=== PATIENT | male | born 1930 | race Caucasian/White ===

== ENCOUNTER 2019-11-19 12:55 | Emergency (ER) | payer MEDICARE, OTHER ==
--- NOTE | 2019-11-19 13:10 | ED ---
Lower Extremity - HPI Summary HPI Summary: The patient is an 89-year-old male arriving via ambulance to [facility] emergency department with a chief complaint of a fall this morning around 10:00 with increased right hip pain upon arrival. He reports a history of frequent falls with transfer from his wheelchair. During the episode today, he fell onto buttocks, and he did not hit his head or have any loss of consciousness. The pain in the hip has resolved to the baseline pain he feels. Symptoms rated 4/10 in severity. He has not taken any medications prior to arrival for treatment. Past medical history significant for diabetes, anemia, CAD, hyperlipidemia, hypertension, pacemaker, aortic valve replacement, asbestos, arthritis, stroke following cardiac surgery, right carotid endarterectomy, arthritis, left total knee replacement. Former smoker, no alcohol use, no substance use. Medications reviewed. Allergies noted. Home Medications Medication Instructions Recorded Confirmed Type Aspirin 81 mg CHEW TAB* [Aspirin 1 tab PO DAILY 08/04/13 07/07/16 History Low Dose TAB*] Multivitamins/Minerals TAB* [Thera 1 tab PO QAM 08/04/13 07/07/16 History M Plus TAB*] Tiotropium CAPSULE (NF) [Spiriva*] 1 cap INH QAM 08/04/13 07/07/16 History metFORMIN* [Glucophage*] 1 tab PO BID 08/04/13 07/07/16 History Acetaminophen [Acetaminophen Extra 1 tab PO BID PRN 10/09/15 07/07/16 History Stren] Albuterol Sulfate [Proventil Hfa] 2 puff INH QID PRN 10/09/15 07/07/16 History Amoxicillin PO (*) [Amoxicillin 4 cap PO SEE INSTRUCTIONS PRN 10/09/15 07/07/16 History 500 MG CAP*] Artificial Tear Solution [Tears 1 erika BOTH EYES SEE INSTRUCTIONS 10/09/15 History Naturale II] Baclofen TAB* [Lioresal TAB*] 0.5 tab PO BEDTIME PRN 10/09/15 07/07/16 History Budesonide/Formote 80/4.5(NF) 2 puff INH BID 10/09/15 07/07/16 History [Symbicort 80/4.5 (NF)] Digoxin TAB* [Lanoxin TAB*] 1 tab PO QAM 10/09/15 07/07/16 History Ferrous Sulfate TAB* 1 tab PO QAM 10/09/15 07/07/16 History Finasteride TAB* [Proscar TAB*] 1 tab PO QPM 10/09/15 07/07/16 History Metoprolol Succinate XL TAB* 0.5 tab PO QPM 10/09/15 07/07/16 History [Toprol XL TAB*] Nitroglycerin TAB 0.4 MG* 1 tab SL SEE INSTRUCTIONS PRN 10/09/15 07/07/16 History Potassium Chloride Microencaps 1 tab PO QAM 10/09/15 07/07/16 History [Klor-Con M10] Tamsulosin HCl [Flomax] 1 tab PO BEDTIME 10/09/15 07/07/16 History Warfarin TAB(*) [Coumadin TAB(*)] 3 tab PO TUTHSA 10/09/15 07/07/16 History Dextran 70/Hypromellose 1 drop BOTH EYES QID 07/02/16 07/07/16 History Lidocaine 4% TOPICAL* [Xylocaine 1 applic TOPICAL BID 07/02/16 07/07/16 History Topical 4%*] Magnesium Oxide TAB* [MagOx 400 400 mg PO QAM 07/02/16 07/07/16 History TAB*] Polyethylene Glycol 3350 BTL* 17 gm PO ONCE PRN 07/02/16 07/07/16 History [Miralax] Spironolactone [Aldactone 25 MG-] 25 mg PO DAILY 07/02/16 07/07/16 History Torsemide [Demadex 10 MG-] 10 mg PO .EVERY OTHER DAY 07/02/16 07/07/16 History Warfarin TAB(*) [Coumadin TAB(*)] 3.5 tab PO SUMOWEFR 07/02/16 07/07/16 History - History of Current Complaint Chief Complaint: EDFall Stated Complaint: FALL Time Seen by Provider: 11/19/19 12:59 Hx Obtained From: Patient Mechanism Of Injury: Fall From A Standing Position Onset of Pain: Immediate Onset/Duration: Resolved Severity Initially: Moderate Severity Currently: Mild Pain Intensity: 4 Pain Scale Used: 0-10 Numeric Timing: Lasting Minutes Location: Is Discrete @ - right hip Character Of Pain: Aching Associated Signs And Symptoms: Negative: Other - head injury, LOC Aggravating Factor(s): Nothing Alleviating Factor(s): Nothing Able to Bear Weight: No - patient uses wheelchair at baseline - Allergies/Home Medications Allergies/Adverse Reactions: Allergies Allergy/AdvReac Type Severity Reaction Status Date / Time MS CI Pigment Blue 63 Allergy Unknown UNK Verified 07/07/16 11:12 [From Pradaxa] MS Dabigatran [From Pradaxa] Allergy Unknown UNK Verified 07/07/16 11:12 MS Yellow Dye [From Pradaxa] Allergy Unknown Rash Verified 07/07/16 11:12 MS Atorvastatin Allergy MUSCLE Verified 07/07/16 11:12 [From Lipitor] WEAKNESS Home Medications: Home Medications Aspirin 81 mg CHEW TAB* [Aspirin Low Dose TAB*] 1 tab PO DAILY 08/04/13 [ History Confirmed 07/07/16] Multivitamins/Minerals TAB* [Thera M Plus TAB*] 1 tab PO QAM 08/04/13 [History Confirmed 07/07/16] Tiotropium CAPSULE (NF) [Spiriva*] 1 cap INH QAM 08/04/13 [History Confirmed 09/10] metFORMIN* [Glucophage*] 1 tab PO BID 08/04/13 [History Confirmed 07/07/16] Acetaminophen [Acetaminophen Extra Stren] 1 tab PO BID PRN 10/09/15 [History Confirmed 07/07/16] Albuterol Sulfate [Proventil Hfa] 2 puff INH QID PRN 10/09/15 [History Confirmed 07/07/16] Amoxicillin PO (*) [Amoxicillin 500 MG CAP*] 4 cap PO SEE INSTRUCTIONS PRN 10/09 [History Confirmed 07/07/16] Artificial Tear Solution [Tears Naturale II] 1 erika BOTH EYES SEE INSTRUCTIONS [History Confirmed 07/07/16] Baclofen TAB* [Lioresal TAB*] 0.5 tab PO BEDTIME PRN 10/09/15 [History Confirmed 07/07/16] Budesonide/Formote 80/4.5(NF) [Symbicort 80/4.5 (NF)] 2 puff INH BID 10/09/15 [ History Confirmed 07/07/16] Digoxin TAB* [Lanoxin TAB*] 1 tab PO QAM 10/09/15 [History Confirmed 07/07/16] Ferrous Sulfate TAB* 1 tab PO QAM 10/09/15 [History Confirmed 07/07/16] Finasteride TAB* [Proscar TAB*] 1 tab PO QPM 10/09/15 [History Confirmed ] Metoprolol Succinate XL TAB* [Toprol XL TAB*] 0.5 tab PO QPM 10/09/15 [History Confirmed 07/07/16] Nitroglycerin TAB 0.4 MG* 1 tab SL SEE INSTRUCTIONS PRN 10/09/15 [History Confirmed 07/07/16] Potassium Chloride Microencaps [Klor-Con M10] 1 tab PO QAM 10/09/15 [History Confirmed 07/07/16] Tamsulosin HCl [Flomax] 1 tab PO BEDTIME 10/09/15 [History Confirmed 07/07/16] Warfarin TAB(*) [Coumadin TAB(*)] 3 tab PO TUTHSA 10/09/15 [History Confirmed ] Dextran 70/Hypromellose 1 drop BOTH EYES QID 07/02/16 [History Confirmed ] Lidocaine 4% TOPICAL* [Xylocaine Topical 4%*] 1 applic TOPICAL BID 07/02/16 [ History Confirmed 07/07/16] Magnesium Oxide TAB* [MagOx 400 TAB*] 400 mg PO QAM 07/02/16 [History Confirmed 07/07/16] Polyethylene Glycol 3350 BTL* [Miralax] 17 gm PO ONCE PRN 07/02/16 [History Confirmed 07/07/16] Spironolactone [Aldactone 25 MG-] 25 mg PO DAILY 07/02/16 [History Confirmed 09/10] Torsemide [Demadex 10 MG-] 10 mg PO .EVERY OTHER DAY 07/02/16 [History Confirmed 07/07/16] Warfarin TAB(*) [Coumadin TAB(*)] 3.5 tab PO SUMOWEFR 07/02/16 [History Confirmed 07/07/16] PMH/Surg Hx/FS Hx/Imm Hx Endocrine/Hematology History: Reports: Hx Diabetes - TYPE 2, Hx Anemia - SLIGHT - IRON THERPHY Cardiovascular History: Reports: Hx Coronary Artery Disease, Hx Hypercholesterolemia, Hx Hypertension, Hx Pacemaker/ICD - 04/2012 FOR ATRIAL FIBRILLATION, Hx Valvular Heart Disease - 2013 AORTIC VALVE REPLACEMENT- TRIFECTA TISSUE HEART VALVE, Other Cardiovascular Problems/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 Denies: Hx Angina, Hx Congestive Heart Failure Respiratory History: Reports: Other Respiratory Problems/Disorders - ABESTOS History: Reports: Other Problems/Disorders - URINARY RETENTION Denies: Hx Renal Disease Musculoskeletal History: Reports: Hx Arthritis Sensory History: Reports: Hx Cataracts - HX OF, Hx Contacts or Glasses - GLASSES , Hx Hearing Aid - BILATERAL Opthamlomology History: Reports: Hx Cataracts - HX OF, Hx Contacts or Glasses - GLASSES Neurological History: Reports: Other Neuro Impairments/Disorders - 2012 Hx stroke after heart surgery - Surgical History Surgical History: Yes Surgery Procedure, Year, and Place: 2007 UMBILICAL HERNIA REPAIR, [facility]. 05/2009 RIGHT CAROTID ENDARTERECTOMY, [facility]. 06/2009 LEFT TOTAL KNEE REPLACEMENT. 2011 [employer] DUAL CHAMBER PACEMAKER INSERTED, [facility]. 06/2013 AORTIC VALVE REPLACEMENT (TRIFECTA TISSUE VALVE), [facility] Anesthesia Reactions: No - Immunization History Date of Influenza Vaccine: 2012 Infectious Disease History: No Infectious Disease History: Denies: Traveled Outside the [place] in Last 30 Days - Family History Known Family History: Positive: Cardiac Disease, Hypertension Negative: Diabetes - Social History Alcohol Use: None Hx Substance Use: No Substance Use Type: Reports: None Hx Tobacco Use: Yes Smoking Status (MU): Former Smoker Type: Cigarettes Amount Used/How Often: 1 PPD Have You Smoked in the Last Year: No Review of Systems Positive: Arthralgia - right hip Neurological/Mental Status: Other - Negative: LOC, head injury All Other Systems Reviewed And Are Negative: Yes Physical Exam - Summary Physical Exam Summary: Appearance: The patient is well-nourished in no acute distress and in no acute pain. Skin: The skin is warm and dry, and skin color reflects adequate perfusion. HEENT: The head is normocephalic and atraumatic. The pupils are equal and reactive. The conjunctivae are clear and without drainage. Nares are patent and without drainage. Mouth reveals moist mucous membranes, and the throat is without erythema and exudate. The external ears are intact. The ear canals are patent and without drainage. The tympanic membranes are intact. Neck: The neck is supple with full range of motion and non-tender. There are no carotid bruits. There is no neck vein distension. Respiratory: Chest is non-tender. Lungs are clear to auscultation and breath sounds are symmetrical and equal. Cardiovascular: Heart is regular rate and rhythm. There is no murmur or rub auscultated. The bilateral lower extremities are edematous. Pulses are symmetrical and equal. Abdomen: The abdomen is soft and non-tender. There are normal bowel sounds heard in all four quadrants and there is no organomegaly palpated. Musculoskeletal: There is no back tenderness noted. There is no tenderness of the right hip elicited. Extremities are non-tender with full range of motion. There is good capillary refill. The bilateral lower extremities are edematous. There is no calf tenderness elicited. Neurological: Patient is alert and oriented to person, place and time. The patient has symmetrical motor strength in all four extremities. Cranial nerves are grossly intact. Deep tendon reflexes are symmetrical and equal in all four extremities. Psychiatric: The patient has an appropriate affect and does not exhibit any anxiety or depression. Triage Information Reviewed: Yes Vital Signs On Initial Exam: Initial Vitals Temp Pulse Resp BP Pulse Ox 98.2 F 76 18 151/129 95 11/19/19 13:01 11/19/19 13:01 11/19/19 13:01 11/19/19 13:01 11/19/19 13:01 Vital Signs Reviewed: Yes Procedures - Sedation Patient Received Moderate/Deep Sedation with Procedure: No Diagnostics - Vital Signs Vital Signs Temp Pulse Resp BP Pulse Ox 11/19/19 13:01 98.2 F 76 18 151/129 95 - Laboratory Result Diagrams: 11/19/19 16:08 11/19/19 16:08 Lab Statement: Any lab studies that have been ordered have been reviewed, and results considered in the medical decision making process. Re-Evaluation - Re-Evaluation First Eval Re-Evaluation Time: 13:45 Comment: Patient safe for discharge. Second Eval Re-Evaluation Time: 17:00 Comment: Patient's daughter here, they are agreeable with discharge at this time. Lower Extremity Course/Dx - Course Course Of Treatment: Mr. Horton reported to me that he has frequent falls. They are never very serious but rather he ends up feeling very weak and lowered himself down. He had one of those today and states that he did not get hurt. I got an equivocal answer when I asked him why he then came to the emergency department. It seems as though he called the ambulance for help getting up and they felt that he was unsafe at home. On exam I noted no acute pathology. His daughter arrived and she agreed that he was not injured and that this was not unusual for him. I offered to do labs and other testing to see if there was an acute reason for his weakness that would require admission. He stated that he would not be admitted here but wanted to be transferred to the [facility]. I explained that that was only going to be possible if he were willing to cover the cost. At that point they agreed that he should go home. His daughter went to get some close for him and when she came back she expressed her concern that he had been recently treated for an infection and she wanted to make sure was completely gone. At that point labs were obtained and were unremarkable. He may very well need to be admitted and possibly placed but he is refusing that at this time and his daughters going to take him home. - Diagnoses Provider Diagnoses: Fall Discharge ED - Sign-Out/Discharge Documenting (check all that apply): Patient Departure - Patient will be discharged home. - Discharge Plan Condition: Stable Disposition: HOME Patient Education Materials: Fall Prevention for Older Adults (ED) Referrals: Lashawn Sharma [Primary Care Provider] - 3 Days Additional Instructions: Follow up with your primary care provider in 2-3 days. Return to the emergency department for any new or worsening symptoms. - Billing Disposition and Condition Condition: STABLE Disposition: Home - Attestation Statements Document Initiated by Areli: Yes Documenting Scribe: Zoila Wilder Provider For Whom Areli is Documenting (Include Credential): Dr. Christo Garcia MD Scribe Attestation: Zoila Srivastava scribed for Dr. Christo Garcia MD on 11/19/19 at 1951. Scribe Documentation Reviewed: Yes Provider Attestation: The documentation as recorded by the Zoila morrison accurately reflects the service I personally performed and the decisions made by me, Dr. Christo Garcia MD Status of [place] Document: Viewed
[2019-11-19 15:38] LABS: Urine Appearance Turbid; Urine Bilirubin Negative (Negative); Urine Blood 1+ (Negative); Urine Color Amber; Urine Glucose Negative (Negative); Urine Ketones Negative (Negative); Urine Nitrite Negative (Negative); Urine Protein 2+(100 mg/dL) (Negative); Urine Specific Gravity 1.018 (1.010-1.030); Urine Urobilinogen Negative (Negative)
[2019-11-19 15:42] LABS: Urine Bacteria Absent (Absent); Urine Red Blood Cell Trace(0-2/hpf) (Absent); Urine Squamous Epithelial Cell Present (Absent); Urine White Blood Cell 3+(>20/hpf) (Absent)
[2019-11-19 16:18] LABS: ABS Basophils 0.1 10^3/ul (0-0.2); ABS Eosinophils 0.2 10^3/ul (0-0.6); ABS Lymphocytes 2.3 10^3/ul (1.0-4.8); ABS Monocytes 0.7 10^3/ul (0-0.8); ABS Neutrophils 6.6 10^3/ul (1.5-7.7); Eosinophil % 1.6 %; Hematocrit 35 % (42-52); Lymphocyte % 23.4 %; Mean Corpuscular HGB Conc 34 g/dL (31-36); Mean Corpuscular Hemoglobin 32 pg (27-31); Mean Corpuscular Volume 95 fL (80-94); Platelet Count 196 10^3/uL (150-450); Red Blood Count 3.74 10^6 /uL (4.18-5.48); Red Cell Distribution Width 14 % (10-15); White Blood Count 9.9 10^3/uL (3.5-10.8)
[2019-11-19 16:34] LABS: Albumin 3.2 g/dL (3.2-5.2); Albumin/Globulin Ratio 0.9 (1-3); BUN/Creatinine Ratio 18.4 (8-20); C Reactive Protein 12.59 mg/L (<8.01); Calcium 8.5 mg/dL (8.6-10.3); EGFR African American 59.8 (>60); EGFR Non-African American 49.5 (>60); Globulin 3.6 g/dL (2-4); Potassium 3.6 mmol/L (3.5-5.0); Total Bilirubin 0.4 mg/dL (0.2-1.0); Total Protein 6.8 g/dL (6.4-8.9)
[2019-11-19 16:37] LABS: Troponin I 0.01 ng/mL (<0.03)
[2019-11-19 17:16] VITALS: BP 172/83
[2019-11-19 17:30] LABS: TSH (Thyroid Stimulating Horm) 2.31 mcIU/mL (0.34-5.60)
--- NOTE | 2019-11-21 15:41 | ED ---
Imaging and Labs Follow Up Follow Up Type: Labs/Cultures Provider Diagnoses: Fall
--- NOTE | 2019-11-22 07:18 | ED ---
Imaging and Labs Follow Up Follow Up Type: Labs/Cultures Labs/Culture Result: patient urine culture grew Enterobacter clocae >100,000 and e coli 10-25,000 Patient Communication/Plan: patient was not placed on antibiotics at d/c. discussed with patient and he does not want to be on antibiotics as this time due to side effects. wants primary to place on antibiotics if needed. with previous urine cultures looks like patient may be colonized so may be appropriate to hold on antibiotics at this time as is having no symptoms. faxed results to patient primary. Provider Diagnoses: Fall
== END 2019-11-19 17:16 | disposition home or self-care (01) ==
LOC: ED 12:55
DX: Z04.3 Encounter for examination and observation following other accident (principal); W18.30XA Fall on same level, unspecified, initial encounter; Y92.009 Unspecified place in unspecified non-institutional (private) residence as the place of occurrence of the external cause; E11.9 Type 2 diabetes mellitus without complications; D64.9 Anemia, unspecified; I25.10 Atherosclerotic heart disease of native coronary artery without angina pectoris; E78.00 Pure hypercholesterolemia, unspecified; I48.91 Unspecified atrial fibrillation; Z95.0 Presence of cardiac pacemaker; Z95.2 Presence of prosthetic heart valve; Z96.652 Presence of left artificial knee joint; Z87.891 Personal history of nicotine dependence; Z79.01 Long term (current) use of anticoagulants; Z79.82 Long term (current) use of aspirin; Z79.84 Long term (current) use of oral hypoglycemic drugs; Z79.899 Other long term (current) drug therapy; Z88.8 Allergy status to other drugs, medicaments and biological substances
CPT/HCPCS: 36415; 80053; 81003; 81015; 84443; 84484; 85025; 86140; 87077; 87086; 87186; 99283